=== PATIENT | female | born 1990 | race Caucasian/White ===

== ENCOUNTER 2017-07-19 06:08 | Emergency (ER) | payer OTHER ==
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
--- NOTE | 2017-07-19 08:58 | CR ---
Right tibia and fibula: AP and lateral views of the right tibia and fibula were obtained. No fracture or other abnormality is seen. Impression: 1. No abnormality is identified on two-view right tibia and fibula study. Diagnostic code #1
--- NOTE | 2017-07-19 08:58 | CR ---
Right hand: Four views of the right hand were obtained. Comparison: No prior hand exam. Joint spaces are preserved. No fracture, dislocation or other bony abnormality is seen. Impression: 1. No abnormality is identified on right hand exam. Diagnostic code #1
== END 2017-07-19 07:08 | disposition home or self-care (01) ==
LOC: JD.ED 06:08
DX: S80.12XA Contusion of left lower leg, initial encounter (principal); S80.11XA Contusion of right lower leg, initial encounter; S60.221A Contusion of right hand, initial encounter; T20.17XA Burn of first degree of neck, initial encounter; Z79.899 Other long term (current) drug therapy; Z88.6 Allergy status to analgesic agent; V40.5XXA Car driver injured in collision with pedestrian or animal in traffic accident, initial encounter; Y92.410 Unspecified street and highway as the place of occurrence of the external cause
CPT/HCPCS: 73130-26-RT; 73130-RT; 73590-26-RT; 73590-RT; 99283; 99284

== ENCOUNTER 2019-04-13 06:25 | Emergency (ER) | payer OTHER ==
--- NOTE | 2019-04-13 07:10 | EDM.PDOC ---
ED HPI GENERAL MEDICAL PROBLEM - General Chief Complaint: Lower Extremity Injury/Pain Stated Complaint: LEG PAIN WITH REDNESS AND SWELLING Time Seen by Provider: 04/13/19 07:09 - History of Present Illness INITIAL COMMENTS - FREE TEXT/NARRATIVE: 28-year-old female presents emergency room with left leg pain redness and swelling. This started 2 days ago in her lower calf and is extended up above her knee now. She has a history to prior DVTs. She denies any chest pain breathing difficulties or shortness of breath. She developed her first DVT when she was in the hospital having a brain tumor removed. Patient is currently treated for asthma and this is under good control at this time. Patient's last surgery was in 2012. She is currently on Keppra but she does not recall having seizures in the past. Left Leg Pain Score (Numeric/FACES): 7 - Related Data Allergies Allergy/AdvReac Type Severity Reaction Status Date / Time acetaminophen [From Percocet] AdvReac Dizziness Verified 07/19/17 06:23 oxycodone [From Percocet] AdvReac Dizziness Verified 07/19/17 06:23 Home Meds: Home Meds Albuterol Sulfate [Proair Hfa] 8.5 gm IH ASDIRECTED PRN 07/19/17 [History] Desmopressin Acetate [Ddavp] 5 mcg JOSE BID 07/19/17 [History] Levothyroxine Sodium [Synthroid] 150 mcg PO ACBREAKFAST 07/19/17 [History] Phentermine HCl 30 mg PO DAILY 07/19/17 [History] Topiramate [Topiramate ER] 250 cap PO BID 07/19/17 [History] levETIRAcetam [Keppra] 1,000 mg PO DAILY 07/19/17 [History] predniSONE [Prednisone] 5 mg PO DAILY 07/19/17 [History] cephALEXin [Keflex] 500 mg PO Q6H #28 cap 04/13/19 [Rx] Past Medical History Cardiovascular History: Reports: Blood Clots/VTE/DVT, Other (See Below) Other Cardiovascular History: hypotension Respiratory History: Reports: Asthma Psychiatric History: Reports: Depression Endocrine/Metabolic History: Reports: Hypothyroidism, Other (See Below) Other Endocrine/Metabolic History: Diabetes insipidus, adrenal insufficiency Oncologic (Cancer) History: Reports: Brain - Infectious Disease History Infectious Disease History: Reports: Chicken Pox - Past Surgical History Head Surgeries/Procedures: Reports: Shunt Endocrine Surgical History: Reports: Other (See Below) Other Endocrine Surgeries/Procedures: shunt in placed from brain. Social & Family History - Family History Family Medical History: Noncontributory - Tobacco Use Smoking Status *Q: Never Smoker - Caffeine Use Caffeine Use: Reports: None - Recreational Drug Use Recreational Drug Use: No Review of Systems - Review of Systems Review Of Systems: See Below Constitutional: Reports: No Symptoms Respiratory: Reports: No Symptoms Cardiovascular: Reports: No Symptoms GI/Abdominal: Reports: No Symptoms Genitourinary: Reports: No Symptoms Musculoskeletal: Reports: No Symptoms Skin: Reports: Rash (In the affected leg) Neurological: Reports: No Symptoms Psychiatric: Reports: No Symptoms ED EXAM, GENERAL - Physical Exam Exam: See Below Exam Limited By: No Limitations General Appearance: Alert, No Apparent Distress Respiratory/Chest: No Respiratory Distress, Lungs Clear, Normal Breath Sounds GI/Abdominal: Normal Bowel Sounds, Soft, Non-Tender, Other (Patient is morbidly obese) Back Exam: No: CVA Tenderness (L), CVA Tenderness (R) Extremities: Other (She has increased swelling the left leg she has some blotchy redness on the medial aspect starting in the mid calf working up to the mid thigh.) Skin Exam: Warm, Dry, Intact Lymphatic: No Adenopathy Course - Vital Signs Last Recorded V/S: Last Vital Signs Temp 36.0 C 04/13/19 06:35 Pulse 102 H 04/13/19 06:35 Resp 16 04/13/19 06:35 BP 138/77 04/13/19 06:35 Pulse Ox 100 04/13/19 06:35 - Re-Assessments/Exams Free Text/Narrative Re-Assessment/Exam: 04/13/19 09:32 Doppler ultrasound of the venous system in the left leg is negative for DVT. I discussed the findings this with the patient patient be started on Keflex use warm moist heat to the area every couple hours while awake and will follow up with her primary physician in [place] in the next day or 2 for recheck. Departure - Departure Time of Disposition: 09:33 Disposition: Home, Self-Care 01 Clinical Impression: Pain and swelling of left lower extremity - Discharge Information Prescriptions: cephALEXin [Keflex] 500 mg PO Q6H #28 cap Referrals: Patrizia Gardiner MD [Primary Care Provider] - Forms: ED Department Discharge, ED Return to Work/School Form Additional Instructions: Return to the emergency room with any questions problems or worsening symptoms. Follow-up with your regular provider in the next day or 2 for recheck. Occasionally we can get false-negative ultrasounds and this needs to be followed closely. You will be started on Keflex which is an antibiotic in case this represents an early cellulitis which is an infection involving the skin. Use warm moist heat over the area every couple hours while you are awake.
--- NOTE | 2019-04-13 08:38 | US ---
Left lower extremity deep venous ultrasound: Duplex and color Doppler imaging was obtained of the left common femoral, proximal greater saphenous, superficial femoral, popliteal, posterior tibial and peroneal veins. Right common femoral vein was also evaluated. Comparison: No prior venous imaging. Findings: Normal phasic flow, augmentation and compression are seen within the left lower extremity and within the right common femoral vein. Impression: 1. No evidence of deep venous thrombosis within the left lower extremity or within the right common femoral vein. Diagnostic code #1
== END 2019-04-13 09:56 | disposition home or self-care (01) ==
LOC: JD.ED 06:25
DX: M79.89 Other specified soft tissue disorders (principal); M79.662 Pain in left lower leg; J45.909 Unspecified asthma, uncomplicated; E11.9 Type 2 diabetes mellitus without complications; E03.9 Hypothyroidism, unspecified; E66.01 Morbid (severe) obesity due to excess calories; Z88.8 Allergy status to other drugs, medicaments and biological substances; Z88.5 Allergy status to narcotic agent; Z79.899 Other long term (current) drug therapy; Z79.51 Long term (current) use of inhaled steroids
CPT/HCPCS: 93971-26-LT; 93971-LT; 99283; 99283-25

== ENCOUNTER 2025-01-16 16:28 | Inpatient (IN) | payer BC, OTHER ==
[2025-01-16] MEDS ORDERED: Sodium Chloride 0.9% 100 ML IV SCH (17:15)
[2025-01-16] MEDS: Sodium Chloride 0.9% 1,000 ML IV ONE (17:30)
[2025-01-16] MEDS: Sodium Chloride 0.9% 10 ML Syringe FLUSH PRN (17:39)
[2025-01-16 17:54] LABS: BASOPHILS ABSOLUTE AUTO 0.1 K/mm3 (0.0-0.2); BASOPHILS PERCENT AUTO 0.9 % (0.0-1.0); EOSINOPHILS ABSOLUTE AUTO 1.1 K/mm3 (0.0-0.4); HEMATOCRIT 49.6 % (37.0-47.0); HEMOGLOBIN 15.9 gm/dl (12.0-16.0); IMMATURE GRAN ABSOLUTE AUTO 0.04 K/mm3 (0.00-0.05); IMMATURE GRAN PERCENT AUTO 0.4 % (0.0-0.4); LYMPHOCYTES ABSOLUTE AUTO 1.3 K/mm3 (1.0-4.8); LYMPHOCYTES PERCENT AUTO 14.6 % (24.0-44.0); MEAN CORPUSCULAR HEMOGLOBIN 27.3 pg (28.0-32.0); MEAN CORPUSCULAR HGB CONC 32.1 g/dl (32.0-36.0); MEAN CORPUSCULAR VOLUME 85.1 fl (83.0-99.0); MEAN PLATELET VOLUME 9.6 fl (9.4-12.3); MONOCYTES ABSOLUTE AUTO 0.6 K/mm3 (0.0-0.8); NEUTROPHILS ABSOLUTE AUTO 5.9 K/mm3 (1.8-7.7); NEUTROPHILS PERCENT AUTO 65.1 % (41.0-71.0); PLATELET COUNT,PLT 254 K/mm3 (150-400); RED BLOOD CELL COUNT 5.83 M/mm3 (4.10-5.30); WHITE BLOOD CELL COUNT,WBC 9.11 K/mm3 (3.9-11.3)
[2025-01-16 18:13] LABS: INR 1.03; PROTHROMBIN TIME 10.9 SECONDS (9.7-12.0)
[2025-01-16 18:14] LABS: PTT,PARTIAL THROMBOPLSTIN TIME 25.1 SECONDS (21.7-31.4)
[2025-01-16] MEDS: LORazepam 2 MG/ML SDV IVPUSH ONE (18:14)
[2025-01-16 18:25] LABS: ALBUMIN 3.4 g/dl (3.4-5.0); ANION GAP 16.3 (5-15); BLOOD UREA NITROGEN,BUN 13 mg/dL (7-18); CALCIUM 9.6 mg/dL (8.5-10.1); CARBON DIOXIDE,CO2 23 mEq/L (21-32); CHLORIDE,CL 112 mEq/L (98-107); CREATININE 1.3 mg/dL (0.55-1.02); ESTIMATED GFR 55 mL/min (>60); GLUCOSE RANDOM 81 mg/dL (70-99); POTASSIUM,K 4.3 mEq/L (3.5-5.1); PROTEIN TOTAL,TP 7.1 g/dl (6.4-8.2); SODIUM,NA 147 mEq/L (136-145)
[2025-01-16 18:26] LABS: A/G RATIO 0.9 (1-2); ALANINE AMINOTRANSFERASE,ALT 56 U/L (14-59); ALKALINE PHOSPHATASE 171 U/L (46-116); ASPARTATE AMNIOTRANSFERASE,AST 31 U/L (15-37); BILIRUBIN TOTAL 0.5 mg/dL (0.2-1.0); TROPONIN I HIGH SENSITIVITY 15 pg/mL (<=51)
[2025-01-16 18:34] LABS: HCG QUANTITATIVE < 1.0 mIU/mL
[2025-01-16] MEDS: OLANZapine 10 MG Vial IM ONE (18:41)
[2025-01-16] MEDS: LORazepam 2 MG/ML SDV IM ONE (18:56)
[2025-01-16 19:03] LABS: APPEARANCE,URINE CLEAR (Clear); BILIRUBIN,URINE NEGATIVE (Negative); COLOR,URINE YELLOW (Yellow); GLUCOSE,URINE NEGATIVE (Negative); KETONES,URINE 1+ (Negative); LEUKOCYTE ESTERASE,URINE NEGATIVE (Negative); NITRITE,URINE NEGATIVE (Negative); OCCULT BLOOD,URINE NEGATIVE (Negative); PROTEIN,URINE NEGATIVE (Negative); UROBILINOGEN,URINE 0.2 (0.2-1.0)
[2025-01-16 19:09] LABS: RBC,URINE 0-5 /hpf (0-5); SQUAMOUS EPITHELIAL CELLS,UR 0-5 /hpf (0-5); WBC,URINE 0-5 /hpf (0-5)
[2025-01-16 19:10] LABS: BACTERIA,URINE FEW /hpf (FEW); HYALINE CASTS,URINE 0-5 /lpf (0-5); MUCUS,URINE NOT SEEN /hpf (FEW)
[2025-01-16 19:13] LABS: BARBITURATE SCREEN,URINE NEGATIVE (CUTOFF=200); BENZODIAZEPINES SCREEN,URINE NEGATIVE (CUTOFF=150); BUPRENORPHINE SCREEN,URINE NEGATIVE (CUTOFF=10); METHADONE SCREEN, URINE NEGATIVE (CUTOFF=200); METHAMPHETAMINES SCREEN, URINE NEGATIVE (CUTOFF=500); OXYCODONE SCREEN,URINE NEGATIVE (CUT0FF=100); THC SCREEN,URINE 20 NG/ML NEGATIVE (CUTOFF=50)
[2025-01-16] MEDS: LORazepam 2 MG/ML SDV ONE (19:13)
[2025-01-16] MEDS: OLANZapine 10 MG Vial ONE (19:14)
[2025-01-16 19:15] LABS: AMPHETAMINES SCREEN, URINE PRESUMPTIVE POSITIVE (CUTOFF=500)
[2025-01-16] MEDS: methylPREDNISolone Sodium Succinate 125 MG/2 ML SDV IVPUSH ONE (19:23)
[2025-01-16] MEDS: Sodium Chloride 0.9% 1,000 ML IV SCH (20:02)
[2025-01-16] MEDS: LORazepam 2 MG/ML SDV IVPUSH PRN (21:25)
[2025-01-16] MEDS: Iopamidol 755 Mg/ML 100 ML Bottle IVPUSH ONE (22:21)
[2025-01-16] MEDS ORDERED: Ondansetron 4 MG/2 ML SDV IVPUSH PRN (23:15)
[2025-01-17] MEDS: Ibuprofen 400 MG Tab PO PRN (00:09)
[2025-01-17 01:00] LABS: T4 FREE 1.14 ng/dL (0.76-1.46)
[2025-01-17 01:01] LABS: TSH < 0.007 uIU/mL (0.358-3.74)
[2025-01-17] MEDS: Piperacillin/Tazobactam 4.5 GM in Sodium Chloride 0.9% 100 ML IV ONE (01:17)
[2025-01-17] MEDS: Sodium Chloride 0.45% 1,000 ML IV SCH (01:21)
[2025-01-17] MEDS: Piperacillin/Tazobactam 4.5 GM in Sodium Chloride 0.9% 100 ML IV SCH (06:00)
[2025-01-17 08:19] LABS: BASOPHILS PERCENT AUTO 0.3 % (0.0-1.0); HEMATOCRIT 51.2 % (37.0-47.0); HEMOGLOBIN 16.6 gm/dl (12.0-16.0); IMMATURE GRAN ABSOLUTE AUTO 0.04 K/mm3 (0.00-0.05); IMMATURE GRAN PERCENT AUTO 0.5 % (0.0-0.4); LYMPHOCYTES PERCENT AUTO 12.9 % (24.0-44.0); MEAN CORPUSCULAR HEMOGLOBIN 27.4 pg (28.0-32.0); MEAN CORPUSCULAR HGB CONC 32.4 g/dl (32.0-36.0); MEAN CORPUSCULAR VOLUME 84.5 fl (83.0-99.0); MEAN PLATELET VOLUME 9.9 fl (9.4-12.3); MONOCYTES ABSOLUTE AUTO 0.1 K/mm3 (0.0-0.8); MONOCYTES PERCENT AUTO 0.8 % (0.0-8.0); NEUTROPHILS ABSOLUTE AUTO 6.7 K/mm3 (1.8-7.7); NEUTROPHILS PERCENT AUTO 85.5 % (41.0-71.0); PLATELET COUNT,PLT 291 K/mm3 (150-400); RED BLOOD CELL COUNT 6.06 M/mm3 (4.10-5.30); WHITE BLOOD CELL COUNT,WBC 7.78 K/mm3 (3.9-11.3)
[2025-01-17 08:48] LABS: A/G RATIO 0.8 (1-2); ALBUMIN 3.4 g/dl (3.4-5.0); BILIRUBIN TOTAL 0.8 mg/dL (0.2-1.0); BUN/CREATININE RATIO 10.7 (14-18); C-REACTIVE PROTEIN 14.43 mg/dL (<0.30); CALCIUM 9.7 mg/dL (8.5-10.1); CREATININE 1.5 mg/dL (0.55-1.02); EST CRCL DRUG DOSING (CG) 37.96 mL/min; PROTEIN TOTAL,TP 7.6 g/dl (6.4-8.2)
[2025-01-17 08:56] LABS: ANION GAP 20.1 (5-15)
[2025-01-17 08:57] LABS: POTASSIUM,K 4.1 mEq/L (3.5-5.1)
[2025-01-17] MEDS: Midazolam 1 MG/ML 2 ML SDV IVPUSH ONE ×3 (11:35→12:36)
[2025-01-17] MEDS: Dextrose 5% in Water 1,000 ML IV SCH (11:58)
[2025-01-17] MEDS: Formoterol/Mometasone 200-5 MCG 8.8 GM Inhaler INH SCH (12:28)
[2025-01-17] MEDS: Midazolam 1 MG/ML 2 ML SDV ONE (14:04)
[2025-01-17] MEDS: VANCOmycin 2 GM/400 ML 2 GM in Premix Bag 1 BAG IV ONE (14:10)
[2025-01-17] MEDS: cefTRIAXone 2 GM Vial IVPUSH SCH (14:10)
[2025-01-17] MEDS: Lidocaine 1% 10 ML MDV ONE (14:14)
[2025-01-17 14:38] LABS: BASE EXCESS ARTERIAL -4.4 (-2-2.0); BICARBONATE,ARTERIAL 17.4 meq/L (22.0-26.0); O2 SATURATION ARTERIAL 97.7 % (96.0-97.0)
[2025-01-17] MEDS: Dexamethasone 4 MG/ML SDV IVPUSH SCH (15:34)
[2025-01-17] MEDS: levETIRAcetam 1,000 MG in Sodium Chloride 0.9% 100 ML IV SCH (15:36)
[2025-01-17 18:45] LABS: COLOR,CSF COLORLESS; TUBE NUMBER,CSF 2; TUBE VOLUME,CSF 17.5 ml
[2025-01-17] MEDS ORDERED: Albuterol/Ipratropium 3.0-0.5 MG/3 ML Neb Soln NEB PRN (18:45)
[2025-01-17 18:46] LABS: APPEARANCE CSF CLEAR (CLEAR); WBC,CSF 565 cells/uL (0-5)
[2025-01-17 18:48] LABS: RBC,CSF 302 cells/uL (0-0)
[2025-01-17 18:49] LABS: MONONUCLEAR, CSF 91.6 % (70.0-90.0); POLYMORPHONUCLEAR, CSF 8.4 % (2-4)
[2025-01-17 18:53] LABS: SUPERNATANT APPEAR,CSF NO XANTHOCHROMIA
[2025-01-17] MEDS: ACYCLOVIR IV SCH (19:56)
[2025-01-17] MEDS: SODIUM CHLORIDE 0.9% IV SCH (19:56)
[2025-01-17] MEDS: VANCOmycin 1.25 GM/250 ML 1.25 GM in Premix Bag 1 BAG IV SCH (23:41)
[2025-01-18 04:01] LABS: BASOPHILS PERCENT AUTO 0.1 % (0.0-1.0); EOSINOPHILS PERCENT AUTO 0.1 % (0.0-6.0); HEMATOCRIT 44.3 % (37.0-47.0); IMMATURE GRAN ABSOLUTE AUTO 0.04 K/mm3 (0.00-0.05); IMMATURE GRAN PERCENT AUTO 0.3 % (0.0-0.4); LYMPHOCYTES ABSOLUTE AUTO 1.3 K/mm3 (1.0-4.8); LYMPHOCYTES PERCENT AUTO 9.9 % (24.0-44.0); MEAN CORPUSCULAR HEMOGLOBIN 27.7 pg (28.0-32.0); MEAN CORPUSCULAR HGB CONC 32.5 g/dl (32.0-36.0); MEAN CORPUSCULAR VOLUME 85.2 fl (83.0-99.0); MEAN PLATELET VOLUME 10.2 fl (9.4-12.3); MONOCYTES ABSOLUTE AUTO 0.3 K/mm3 (0.0-0.8); MONOCYTES PERCENT AUTO 2.4 % (0.0-8.0); NEUTROPHILS ABSOLUTE AUTO 11.8 K/mm3 (1.8-7.7); NEUTROPHILS PERCENT AUTO 87.2 % (41.0-71.0); PLATELET COUNT,PLT 242 K/mm3 (150-400); WHITE BLOOD CELL COUNT,WBC 13.58 K/mm3 (3.9-11.3)
[2025-01-18 04:21] LABS: ANION GAP 16.8 (5-15); BUN/CREATININE RATIO 12.3 (14-18); CALCIUM 8.5 mg/dL (8.5-10.1); CREATININE 1.3 mg/dL (0.55-1.02); EST CRCL DRUG DOSING (CG) 43.8 mL/min; PHOSPHORUS 2.5 mg/dL (2.6-4.7); POTASSIUM,K 3.8 mEq/L (3.5-5.1)
[2025-01-18 04:22] LABS: HEMOGLOBIN 14.4 gm/dl (12.0-16.0)
[2025-01-18] MEDS: Insulin Lispro 100 Unit/ML 3 ML KwikPen SUBCUT SCH (08:19)
[2025-01-18] MEDS: ACYCLOVIR ONE (10:13)
[2025-01-18 11:32] LABS: APPEARANCE,URINE TURBID (Clear); BILIRUBIN,URINE NEGATIVE (Negative); COLOR,URINE DARK YELLOW (Yellow); GLUCOSE,URINE NEGATIVE (Negative); KETONES,URINE NEGATIVE (Negative); LEUKOCYTE ESTERASE,URINE NEGATIVE (Negative); NITRITE,URINE NEGATIVE (Negative); OCCULT BLOOD,URINE 2+ (Negative); PROTEIN,URINE 2+ (Negative); UROBILINOGEN,URINE 0.2 (0.2-1.0)
[2025-01-18] MEDS: Sodium Chloride 0.9% 10 ML Syringe FLUSH ONE (12:26)
[2025-01-18] MEDS: Gadobenate Dimeglumine 529 MG/ML 20 ML SDV IVPUSH ONE (12:26)
[2025-01-18 12:48] LABS: BACTERIA,URINE FEW /hpf (FEW); MUCUS,URINE NOT SEEN /hpf (FEW); RBC,URINE 40-50 /hpf (0-5); SQUAMOUS EPITHELIAL CELLS,UR 0-5 /hpf (0-5); WBC,URINE 0-5 /hpf (0-5)
[2025-01-18] MEDS: Enoxaparin 40 MG/0.4 ML Syringe SUBCUT SCH (12:48)
[2025-01-18 12:52] LABS: AMORPHOUS SEDIMENT,URINE MODERATE /hpf (NOT SEEN)
[2025-01-18] MEDS: Dextrose 5%-0.45% NaCl 1,000 ML IV SCH (13:21)
[2025-01-18] MEDS: levETIRAcetam 500 MG/5 ML SDV IVPUSH SCH (15:36)
[2025-01-19 04:43] LABS: BASOPHILS PERCENT AUTO 0.1 % (0.0-1.0); EOSINOPHILS PERCENT AUTO 0.1 % (0.0-6.0); HEMATOCRIT 40.6 % (37.0-47.0); HEMOGLOBIN 13.6 gm/dl (12.0-16.0); IMMATURE GRAN PERCENT AUTO 0.5 % (0.0-0.4); LYMPHOCYTES ABSOLUTE AUTO 1.2 K/mm3 (1.0-4.8); LYMPHOCYTES PERCENT AUTO 5.8 % (24.0-44.0); MEAN CORPUSCULAR HEMOGLOBIN 27.4 pg (28.0-32.0); MEAN CORPUSCULAR HGB CONC 33.5 g/dl (32.0-36.0); MEAN CORPUSCULAR VOLUME 81.9 fl (83.0-99.0); MEAN PLATELET VOLUME 10.2 fl (9.4-12.3); MONOCYTES ABSOLUTE AUTO 0.7 K/mm3 (0.0-0.8); MONOCYTES PERCENT AUTO 3.5 % (0.0-8.0); NEUTROPHILS ABSOLUTE AUTO 17.9 K/mm3 (1.8-7.7); PLATELET COUNT,PLT 257 K/mm3 (150-400); RED BLOOD CELL COUNT 4.96 M/mm3 (4.10-5.30); WHITE BLOOD CELL COUNT,WBC 19.84 K/mm3 (3.9-11.3)
[2025-01-19 05:18] LABS: A/G RATIO 0.9 (1-2); ALBUMIN 2.9 g/dl (3.4-5.0); ANION GAP 21.3 (5-15); BILIRUBIN TOTAL 0.3 mg/dL (0.2-1.0); BUN/CREATININE RATIO 14.8 (14-18); C-REACTIVE PROTEIN 2.32 mg/dL (<0.30); CALCIUM 8.8 mg/dL (8.5-10.1); CREATININE 2.3 mg/dL (0.55-1.02); EST CRCL DRUG DOSING (CG) 24.76 mL/min; POTASSIUM,K 3.3 mEq/L (3.5-5.1); PROTEIN TOTAL,TP 6.2 g/dl (6.4-8.2)
[2025-01-19] MEDS: Potassium Chloride 10 MEQ in Premix Bag 1 BAG IV SCH (06:14)
[2025-01-19 14:07] LABS: ANION GAP 19.3 (5-15); BUN/CREATININE RATIO 14.6 (14-18); CALCIUM 8.5 mg/dL (8.5-10.1); CREATININE 2.6 mg/dL (0.55-1.02); EST CRCL DRUG DOSING (CG) 21.9 mL/min; POTASSIUM,K 3.3 mEq/L (3.5-5.1)
[2025-01-19] MEDS: Dexamethasone 4 MG/ML 5 ML MDV IVPUSH SCH (15:34)
[2025-01-19] MEDS ORDERED: Potassium Chloride 10 MEQ in Dextrose 5% in Water 1,000 ML IV SCH (16:30)
[2025-01-19] MEDS: Dextrose 5% in Water 1,000 ML IV SCH (17:47)
[2025-01-19 20:41] LABS: VDRL, CSF Non Reactive (Non Reactive)
[2025-01-19] MEDS ORDERED: VANCOmycin 750 MG/150 ML 750 MG in Premix Bag 1 BAG IV SCH (23:30)
[2025-01-20 04:40] LABS: BASOPHILS PERCENT AUTO 0.1 % (0.0-1.0); EOSINOPHILS PERCENT AUTO 0.1 % (0.0-6.0); HEMATOCRIT 39.2 % (37.0-47.0); IMMATURE GRAN ABSOLUTE AUTO 0.08 K/mm3 (0.00-0.05); IMMATURE GRAN PERCENT AUTO 0.6 % (0.0-0.4); LYMPHOCYTES ABSOLUTE AUTO 0.9 K/mm3 (1.0-4.8); LYMPHOCYTES PERCENT AUTO 7.1 % (24.0-44.0); MEAN CORPUSCULAR HEMOGLOBIN 27.1 pg (28.0-32.0); MEAN CORPUSCULAR HGB CONC 33.2 g/dl (32.0-36.0); MEAN CORPUSCULAR VOLUME 81.7 fl (83.0-99.0); MEAN PLATELET VOLUME 10.4 fl (9.4-12.3); MONOCYTES ABSOLUTE AUTO 0.4 K/mm3 (0.0-0.8); MONOCYTES PERCENT AUTO 3.3 % (0.0-8.0); NEUTROPHILS ABSOLUTE AUTO 11.7 K/mm3 (1.8-7.7); NEUTROPHILS PERCENT AUTO 88.8 % (41.0-71.0); PLATELET COUNT,PLT 222 K/mm3 (150-400); WHITE BLOOD CELL COUNT,WBC 13.15 K/mm3 (3.9-11.3)
[2025-01-20 05:09] LABS: A/G RATIO 0.9 (1-2); ALBUMIN 2.9 g/dl (3.4-5.0); ANION GAP 21.3 (5-15); BILIRUBIN TOTAL 0.3 mg/dL (0.2-1.0); C-REACTIVE PROTEIN 1.38 mg/dL (<0.30); CALCIUM 8.3 mg/dL (8.5-10.1); CREATININE 2.6 mg/dL (0.55-1.02); EST CRCL DRUG DOSING (CG) 21.9 mL/min; POTASSIUM,K 3.3 mEq/L (3.5-5.1); PROTEIN TOTAL,TP 6.2 g/dl (6.4-8.2)
[2025-01-20 07:47] LABS: WEST NILE AB, CSF 0.04 IV (<=0.89)
[2025-01-20 07:47] LABS: IGG 770 mg/dL (768-1632); OLIG BANDS # 0 Bands (0-1); OLIGOCLONAL BANDS Negative (Negative)
[2025-01-20] MEDS: Levothyroxine 125 MCG Tab PO SCH (10:29)
[2025-01-20 10:47] LABS: HSV SUBTYPE SOURCE CSF; HSV1 SUBTYPE BY PCR Not Detected; HSV2 SUBTYPE BY PCR Not Detected
[2025-01-20 13:41] LABS: ACTH <1.5 pg/mL (7.2-63.3)
[2025-01-20] MEDS: Dexamethasone 4 MG/ML SDV IVPUSH SCH (15:56)
[2025-01-21 04:38] LABS: HEMATOCRIT 38.1 % (37.0-47.0); HEMOGLOBIN 12.7 gm/dl (12.0-16.0); IMMATURE GRAN ABSOLUTE AUTO 0.07 K/mm3 (0.00-0.05); IMMATURE GRAN PERCENT AUTO 0.7 % (0.0-0.4); LYMPHOCYTES ABSOLUTE AUTO 1.1 K/mm3 (1.0-4.8); LYMPHOCYTES PERCENT AUTO 10.9 % (24.0-44.0); MEAN CORPUSCULAR HEMOGLOBIN 27.2 pg (28.0-32.0); MEAN CORPUSCULAR HGB CONC 33.3 g/dl (32.0-36.0); MEAN CORPUSCULAR VOLUME 81.6 fl (83.0-99.0); MEAN PLATELET VOLUME 10.3 fl (9.4-12.3); MONOCYTES ABSOLUTE AUTO 0.6 K/mm3 (0.0-0.8); MONOCYTES PERCENT AUTO 6.1 % (0.0-8.0); NEUTROPHILS PERCENT AUTO 82.3 % (41.0-71.0); NRBC ABSOLUTE 0.02 (0.00-0.02); NRBC PERCENT 0.2 % (0.0-0.2); PLATELET COUNT,PLT 211 K/mm3 (150-400); RED BLOOD CELL COUNT 4.67 M/mm3 (4.10-5.30)
[2025-01-21 05:15] LABS: ALBUMIN 2.9 g/dl (3.4-5.0); ANION GAP 20.1 (5-15); BILIRUBIN TOTAL 0.4 mg/dL (0.2-1.0); BUN/CREATININE RATIO 17.8 (14-18); C-REACTIVE PROTEIN 0.66 mg/dL (<0.30); CALCIUM 8.7 mg/dL (8.5-10.1); CREATININE 1.8 mg/dL (0.55-1.02); EST CRCL DRUG DOSING (CG) 31.63 mL/min; POTASSIUM,K 3.1 mEq/L (3.5-5.1); PROTEIN TOTAL,TP 5.9 g/dl (6.4-8.2)
[2025-01-21] MEDS: predniSONE 5 MG Tab PO SCH (08:55)
[2025-01-21] MEDS: Potassium Chloride 20 MEQ Tab.ER PO ONE (08:56)
[2025-01-21] MEDS: Potassium Phosphates 30 MMOLE in Sodium Chloride 0.9% 500 ML IV SCH (10:42)
[2025-01-21] MEDS ORDERED: Famotidine 20 MG Tab PO PRN (13:59)
[2025-01-21] MEDS ORDERED: Sennosides/Docusate Sodium 50-8.6 MG Tab PO PRN (14:20)
[2025-01-21] MEDS ORDERED: Ibuprofen 400 MG Tab PO PRN (14:21)
[2025-01-21] MEDS: Citalopram 20 MG Tab PO SCH (16:38)
[2025-01-21] MEDS ORDERED: Non-Formulary Medication 1 Each (Fluticasone Propion/Salmeterol [Fluticasone-Salmeterol 50 INH SCH (21:00)
[2025-01-22 05:40] LABS: ALBUMIN 2.8 g/dl (3.4-5.0); ANION GAP 16.1 (5-15); BILIRUBIN TOTAL 0.3 mg/dL (0.2-1.0); BUN/CREATININE RATIO 21.5 (14-18); CALCIUM 8.6 mg/dL (8.5-10.1); CREATININE 1.3 mg/dL (0.55-1.02); EST CRCL DRUG DOSING (CG) 43.8 mL/min; MAGNESIUM 2.1 mg/dL (1.8-2.4); PHOSPHORUS 3.2 mg/dL (2.6-4.7); POTASSIUM,K 3.1 mEq/L (3.5-5.1); PROTEIN TOTAL,TP 5.6 g/dl (6.4-8.2)
[2025-01-22] MEDS: levETIRAcetam 500 MG Tab PO SCH (07:59)
[2025-01-22] MEDS ORDERED: Potassium Chloride 20 MEQ Tab.ER PO ONE (08:36)
[2025-01-22] MEDS: Potassium Chloride 20 MEQ Tab.ER PO ONE ×2 (09:19→11:41)
[2025-01-22 15:42] LABS: ANA BY ELISA, IGG W/RFX TO IFA Detected (None Detected)
[2025-01-22] MEDS: 50% Dextrose in Water 50 ML Syringe IVPUSH PRN (22:54)
[2025-01-23 04:42] LABS: ALDOSTERONE <3.0 ng/dL
[2025-01-23 05:46] LABS: ALBUMIN 2.9 g/dl (3.4-5.0); ANION GAP 15.5 (5-15); BILIRUBIN TOTAL 0.4 mg/dL (0.2-1.0); BUN/CREATININE RATIO 19.2 (14-18); CALCIUM 8.8 mg/dL (8.5-10.1); CREATININE 1.2 mg/dL (0.55-1.02); EST CRCL DRUG DOSING (CG) 47.45 mL/min; POTASSIUM,K 3.5 mEq/L (3.5-5.1); PROTEIN TOTAL,TP 5.7 g/dl (6.4-8.2)
[2025-01-23] MEDS: Potassium Chloride 20 MEQ Tab.ER PO ONE (08:21)
[2025-01-23 21:42] LABS: ANA,HEP-2,IGG <1:80 (<1:80)
[2025-01-24 13:41] LABS: RENIN 1.7 ng/mL/hr
== END 2025-01-23 10:00 | disposition home or self-care (01) | DRG 49 ==
LOC: JD.ED 16:28 → JD.MS 19:28 → JD.ICU 01-17 11:13
PROVIDERS: ADMIT Family Medicine; ATTEND Student in an Organized Health Care Education/Training Program
PROC: 009U3ZX Drainage of Spinal Canal, Percutaneous Approach, Diagnostic (ICD-10-PCS; principal; 2025-01-17)
DX: G00.9 Bacterial meningitis, unspecified (principal); G92.8 Other toxic encephalopathy; J45.909 Unspecified asthma, uncomplicated; E03.9 Hypothyroidism, unspecified; E87.0 Hyperosmolality and hypernatremia; E89.3 Postprocedural hypopituitarism; Z96.89 Presence of other specified functional implants; E27.2 Addisonian crisis; R00.1 Bradycardia, unspecified; E87.6 Hypokalemia; Z88.8 Allergy status to other drugs, medicaments and biological substances; Z79.51 Long term (current) use of inhaled steroids; Z79.899 Other long term (current) drug therapy; Z79.52 Long term (current) use of systemic steroids
CPT/HCPCS: 36415; 36600; 51702; 62270; 70450; 70450-26; 70553; 70553-26; 71045; 71045-26; 80048; 80053; 80202; 80306; 80307; 81001; 82024; 82040; 82042; 82088; 82140; 82533; 82784; 82803; 82945; 82947; 83605; 83735; 83916; 84100; 84244; 84295; 84439; 84443; 84484; 84702; 85025; 85610; 85652; 85730; 86038; 86039; 86140; 86592; 86788; 87040; 87070; 87102; 87205; 87529; 89050; 92610-GN; 93005; 93010; 94640; 94761; 96361; 96372; 96374; 96375; 97110-GP; 97112-GP; 97116-GP; 97161-GP; 97530-GP; 99285; 99285-25; A9270-GY; A9577; C1758; J0133; J0696; J1100; J1650; J1815; J1953; J2003; J2060; J2250; J2359; J2543; J2597; J2919; J3372; J3480; J3490; J7030; J7040; J7070; J7512